=== PATIENT | male | born 1980 | race African-American/Black ===

== ENCOUNTER 2017-01-12 09:00 | Emergency (ER) | payer OTHER, MEDICAID ==
[~2017-01-12] VITALS: Ht 175.3 cm; Wt 81.0 kg
[~2017-01-12 09:00] MED LIST: MEMA5TAB7
[2017-01-12] MEDS ORDERED: SODIUM CHLORIDE 0.9% 1,000 ML IV ONE (09:51)
[2017-01-12] MEDS ORDERED: LEVETIRACETAM 500MG PREMIX 100 ML IV ONE (10:00)
[2017-01-12 10:07] LABS: BASOPHILS % 0.4 % (0.0-2.0); EOSINOPHILS % 5.9 % (0.0-5.0); HEMATOCRIT. 39.9 % (42.0-52.0); HEMOGLOBIN. 13.5 g/dL (14.0-18.0); LYMPHOCYTES % 17.5 % (20.0-50.0); MEAN CORPUSCULAR HEMOGLOBIN 30.6 pg (28.0-32.0); MEAN CORPUSCULAR VOLUME 90.4 fL (80.0-94.0); MEAN PLATELET VOLUME 7.9 fl (7.4-10.4); MONOCYTES % 5.8 % (2.0-8.0); NEUTROPHILS % 70.4 % (40.0-76.0); PLATELET 190 x1000/uL (130-400); RED BLOOD CELL COUNT 4.41 mill/uL (4.7-6.1); RED CELL DISTRIBUTION WIDTH 13.7 % (11.6-14.6)
[2017-01-12 10:16] LABS: PARTIAL THROMBOPLASTIN TIME 22.3 sec (23.4-31.0); PROTHROMBIN TIME 10.6 sec (9.4-11.6)
[2017-01-12 10:18] LABS: AMMONIA 31 uMol/L (<32)
[2017-01-12 10:23] LABS: CARBON DIOXIDE 30 mEq/L (21-32); CHLORIDE 103 mEq/L (98-107); CREATINE KINASE 261 IU/L (39-308); TROPONIN I < 0.02 ng/mL (0.00-0.04)
[2017-01-12] MEDS ORDERED: HYDROCODONE/ACETAMINOPHEN 5/325MG TABLET PO ONE (11:45)
[2017-01-12 13:16] VITALS: BP 130/80
== END 2017-01-12 14:06 | disposition left against medical advice (07) ==
LOC: ER 09:10 → EDBEDREQ 11:23 → ER 14:06 → CANBEDREQ 16:21
DX: G93.40 Encephalopathy, unspecified (principal); G40.409 Other generalized epilepsy and epileptic syndromes, not intractable, without status epilepticus; R79.89 Other specified abnormal findings of blood chemistry; Z88.6 Allergy status to analgesic agent
CPT/HCPCS: 36415; 70450; 71010; 80053; 80307; 80329; 82140; 82550; 83690; 83735; 84443; 84484; 85025; 85610; 85730; 93005; 96365; 99291; J1953; J7030; 80305; 81003

== ENCOUNTER 2018-08-25 10:56 | Emergency (ER) | payer OTHER, MEDICAID ==
[~2018-08-25] VITALS: Ht 177.8 cm; Wt 97.0 kg
[2018-08-25] MEDS ORDERED: SODIUM CHLORIDE 0.9% 1,000 ML IV ONE (11:26)
[2018-08-25] MEDS ORDERED: LORAZEPAM 0.5MG TABLET PO ONE (11:30)
[2018-08-25 11:45] LABS: BASOPHILS % 0.5 % (0.0-2.0); EOSINOPHILS % 1.8 % (0.0-5.0); HEMATOCRIT. 45.2 % (42.0-52.0); HEMOGLOBIN. 15.3 g/dL (14.0-18.0); LYMPHOCYTES % 12.2 % (20.0-50.0); MEAN CORPUSCULAR HEMOGLOBIN 29.5 pg (28.0-32.0); MEAN PLATELET VOLUME 8.6 fl (7.4-10.4); MONOCYTES % 7.7 % (2.0-8.0); NEUTROPHILS % 77.8 % (40.0-76.0); PLATELET 244 x1000/uL (130-400); RED CELL DISTRIBUTION WIDTH 13.9 % (11.6-14.6)
[2018-08-25 11:49] LABS: CHLORIDE 112 mEq/L (98-107)
[2018-08-25] MEDS ORDERED: POTASSIUM CHLORIDE 20MEQ TABLET SR PO ONE (12:30)
[2018-08-25 13:30] VITALS: BP 112/82
== END 2018-08-25 14:30 | disposition home or self-care (01) ==
LOC: ER 10:56
DX: G40.909 Epilepsy, unspecified, not intractable, without status epilepticus (principal); E87.6 Hypokalemia; Z88.6 Allergy status to analgesic agent
CPT/HCPCS: 36415; 80053; 85025; 96361; 99283; J7030